=== PATIENT | female | born 1990 | race Caucasian/White ===

== ENCOUNTER 2019-02-20 21:01 | Emergency (ER) | payer OTHER ==
[2019-02-20 21:11] VITALS: TEMP 98.8; BMI 26.5
--- NOTE | 2019-02-20 21:44 | PDOC ---
History of Present Illness - General Chief Complaint: Wound Stated Complaint: LEG PROBLEM Time Seen by Provider: 02/20/19 21:44 - History of Present Illness Initial Comments: 02/20/19 23:28 injected gentamycin after liposuction Past History - Past Medical History Allergies/Adverse Reactions: Allergies Allergy/AdvReac Type Severity Reaction Status Date / Time shellfish derived Allergy Unknown Verified 02/20/19 21:04 Home Medications: Ambulatory Orders Cephalexin Monohydrate [Keflex -] 500 mg PO BID 5 Days #10 capsule 02/20/19 Asthma: No Cancer: No Cardiac Disorders: No COPD: No Diabetes: No HTN: No Hypercholesterolemia: No Seizures: No Thyroid Disease: No - Reproductive History (#): 2 Para: 0 Therapeutic (s) & number: Yes - Immunization History Immunization Up to Date: Yes - Suicide/Smoking/Psychosocial Hx Smoking Status: No Smoking History: Current some day smoker Have you smoked in the past 12 months: Yes Number of Cigarettes Smoked Daily: 0 Information on smoking cessation initiated: Yes Hx Alcohol Use: Yes Drug/Substance Use Hx: No Substance Use Type: None Hx Substance Use Treatment: No *Physical Exam - Vital Signs Last Vital Signs Temp Pulse Resp BP Pulse Ox 98.8 F 115 H 20 135/69 100 02/20/19 21:04 02/20/19 21:04 02/20/19 21:04 02/20/19 21:04 02/20/19 21:04 ED Treatment Course - LABORATORY CBC & Chemistry Diagram: 02/20/19 22:25 02/20/19 22:25 *DC/Admit/Observation/Transfer Diagnosis at time of Disposition: Cellulitis - Discharge Dispostion Disposition: HOME Condition at time of disposition: Stable Decision to Admit order: No - Prescriptions Prescriptions: Cephalexin Monohydrate [Keflex -] 500 mg PO BID 5 Days #10 capsule - Referrals Referrals: Angie Bryant MD [Primary Care Provider] - - Patient Instructions Printed Discharge Instructions: DI for Wound Infection Additional Instructions: You were seen in the ED for complaints of redness and pain in the legs at site of injection. You were evaluated with labwork and your results were unremarkable You were prescribed antibiotics. Please take as indicated. Return to the ED immediately if you experience any fevers, leg swelling, warmth or redness or drainage from the wound site. - Post Discharge Activity
[2019-02-20 22:39] LABS: BASO % 0.6 % (0-2.0); EOS % 3.8 % (0-4.5); HEMATOCRIT 36.2 % (32.4-45.2); HEMOGLOBIN 11.9 GM/dL (10.7-15.3); LYMPH % 37.3 % (8-40); MCH 28.3 pg (25.7-33.7); MCHC 32.9 g/dl (32.0-36.0); MEAN PLT VOLUME 8.5 fl (7.5-11.1); NEUT % 48.3 % (42.8-82.8); PLATELET COUNT 297 K/MM3 (134-434); RBC 4.21 M/mm3 (3.60-5.2); WHITE BLOOD COUNT 5.6 K/mm3 (4.0-10.0)
[2019-02-20 22:51] LABS: INR 1.03 (0.83-1.09); PROTHROMBIN TIME (PATIENT) 12.2 SEC (9.7-13.0)
[2019-02-20 23:06] LABS: ALBUMIN 3.9 g/dl (3.4-5.0); BILIRUBIN,TOTAL 0.3 mg/dL (0.2-1); BLOOD UREA NITROGEN 10.2 mg/dL (7-18); CALCIUM 9.3 mg/dL (8.5-10.1); CREATININE 0.6 mg/dL (0.55-1.3); TOT PROT 7.1 g/dl (6.4-8.2)
[2019-02-20] MEDS ORDERED: CEPHALEXIN MONOHYDRATE 500 MG CAPSULE (UD) PO ONE (23:08)
[2019-02-20] MEDS ORDERED: CEPHALEXIN MONOHYDRATE 500 MG CAPSULE (UD) ONE (23:11)
[2019-02-20 23:34] VITALS: BP 130/73; PULSE 97
== END 2019-02-20 23:30 | disposition home or self-care (01) ==
LOC: JER 21:01
DX: T81.49XA Infection following a procedure, other surgical site, initial encounter (principal); L03.116 Cellulitis of left lower limb; L03.115 Cellulitis of right lower limb
CPT/HCPCS: 36415; 80053; 83605; 85025; 85610; 85730; 87040; 99283-25

== ENCOUNTER 2019-02-22 21:47 | Emergency (ER) | payer OTHER ==
--- NOTE | 2019-02-22 21:56 | PDOC ---
Rapid Medical Evaluation Chief Complaint: Rash Time Seen by Provider: 02/22/19 21:53 Medical Evaluation: Allergies Allergy/AdvReac Type Severity Reaction Status Date / Time shellfish derived Allergy Unknown Verified 02/20/19 21:04 02/22/19 21:54 Pt presents for worsening rash to both of her legs. She was seen in the ED on . States it is now blistering Exam: deferred to on-coming provider Orders: Nothing Pt to proceed to the ER for further evaluation Discharge Disposition - Diagnosis Cellulitis - Referrals - Patient Instructions - Post Discharge Activity
[2019-02-22 21:59] VITALS: BP 128/74; PULSE 89; TEMP 98.7; BMI 27.3
--- NOTE | 2019-02-22 22:07 | PDOC ---
History of Present Illness - General Chief Complaint: Redness To Affected Area Stated Complaint: RASH Time Seen by Provider: 02/22/19 21:53 History Source: Patient - History of Present Illness Initial Comments: 02/22/19 22:27 28 year old female s/p lipo suction in [place] 01/31/19 s/p procedure patient returned to the [facility]. patient was advised by surgeon to take IM dose of gentamicin post procedure. ( last dose 02/11). patient self injected 3 doses of gentamicin now with redness to b/.l thigh injection site for the last 5 days. denies fever/ chills, streaking, pain or redness at the lipo suction site. patient seen in this ED 2 days ago and was started on cephalexin. patient reports that today she received a call from the ED and advised to return for a wound check. 0 Past History - Past Medical History Allergies/Adverse Reactions: Allergies Allergy/AdvReac Type Severity Reaction Status Date / Time shellfish derived Allergy Unknown Verified 02/20/19 21:04 Home Medications: Ambulatory Orders Cephalexin Monohydrate [Keflex -] 250 mg PO Q6H #28 capsule 02/22/19 Sulfamethoxazole/Trimethoprim [Bactrim Ds -] 1 tab PO BID #14 tablet 02/22/19 Asthma: No Cancer: No Cardiac Disorders: No COPD: No Diabetes: No HTN: No Hypercholesterolemia: No Seizures: No Thyroid Disease: No - Reproductive History (#): 2 Para: 0 Therapeutic (s) & number: Yes - Immunization History Immunization Up to Date: Yes - Suicide/Smoking/Psychosocial Hx Smoking Status: No Smoking History: Never smoked Have you smoked in the past 12 months: Yes Number of Cigarettes Smoked Daily: 0 Hx Alcohol Use: Yes Drug/Substance Use Hx: No Substance Use Type: None Hx Substance Use Treatment: No Review of Systems - Review of Systems Able to Perform ROS?: Yes Is the patient limited Wolof proficient: No *Physical Exam - Vital Signs Last Vital Signs Temp Pulse Resp BP Pulse Ox 98.7 F 89 18 128/74 99 02/22/19 21:53 02/22/19 21:53 02/22/19 21:53 02/22/19 21:53 02/22/19 21:53 - Physical Exam General Appearance: Yes: Appropriately Dressed Extremity: positive: Erythema (and scabbing to b/l thigh. not warm to touch. tenderness noted. no fluctuant mass) Integumentary: positive: Dry, Warm Neurologic: positive: Fully Oriented, Alert, Normal Mood/Affect Progress Note - Progress Note Progress Note: A: cellulitis wound check P: skin marked. bactrim to be added patient to return in 2 days for a wound check *DC/Admit/Observation/Transfer Diagnosis at time of Disposition: Encounter for evaluation of wound Cellulitis Qualifiers: Site of cellulitis: extremity Site of cellulitis of extremity: lower extremity Laterality: unspecified laterality Qualified Code(s): L03.119 - Cellulitis of unspecified part of limb - Discharge Dispostion Disposition: HOME - Prescriptions Prescriptions: Cephalexin Monohydrate [Keflex -] 250 mg PO Q6H #28 capsule Sulfamethoxazole/Trimethoprim [Bactrim Ds -] 1 tab PO BID #14 tablet - Referrals Referrals: Radu Bryant MD [Primary Care Provider] - - Patient Instructions Printed Discharge Instructions: DI for Wound Infection Additional Instructions: continue cephalexin 4 times daily take bactrim twice a day return to the ER in 2 days for a wound check or follow up with your PCP in 2 days for a wound check return to the ER immediately if redness is worsening, streaking, fever/ chills or worsening symptoms. - Post Discharge Activity
--- NOTE | 2019-02-22 23:29 | PDOC ---
*Physical Exam - Vital Signs Last Vital Signs Temp Pulse Resp BP Pulse Ox 98.7 F 89 18 128/74 99 02/22/19 21:53 02/22/19 21:53 02/22/19 21:53 02/22/19 21:53 02/22/19 21:53 - Physical Exam Comments: 02/22/19 23:26 Multiple areas of erythema on the anterior aspects of the bilateral thighs, not warm to touch. Underlying induration. No expressible purulence. Medical Decision Making - Medical Decision Making 02/22/19 23:27] on keflex for cellulitis s/p injected gentamycin for cosmetic purposes at the recommendation of a [facility] cosmetic center. afebrile not tachy normotensive will iker borders with skin marker add bactrim for MRSA coverage return to ED in 2d for wound check. *DC/Admit/Observation/Transfer Diagnosis at time of Disposition: Encounter for evaluation of wound Cellulitis Qualifiers: Site of cellulitis: extremity Site of cellulitis of extremity: lower extremity Laterality: unspecified laterality Qualified Code(s): L03.119 - Cellulitis of unspecified part of limb - Discharge Dispostion Disposition: HOME - Prescriptions Prescriptions: Cephalexin Monohydrate [Keflex -] 250 mg PO Q6H #28 capsule Sulfamethoxazole/Trimethoprim [Bactrim Ds -] 1 tab PO BID #14 tablet - Referrals Referrals: Radu Bryant MD [Primary Care Provider] - - Patient Instructions Printed Discharge Instructions: DI for Wound Infection Additional Instructions: continue cephalexin 4 times daily take bactrim twice a day return to the ER in 2 days for a wound check or follow up with your PCP in 2 days for a wound check return to the ER immediately if redness is worsening, streaking, fever/ chills or worsening symptoms. - Post Discharge Activity
== END 2019-02-22 22:45 | disposition home or self-care (01) ==
LOC: JER 21:47
DX: L03.116 Cellulitis of left lower limb (principal); L03.115 Cellulitis of right lower limb; Z98.890 Other specified postprocedural states
CPT/HCPCS: 99281-25

== ENCOUNTER 2019-05-01 15:36 | Inpatient (IN) | payer OTHER ==
[~2019-05-01 15:36] MED LIST: CLINDAMYCIN 300 MG PREMIX IVPB 300 MG/50 ML BAG IVPB SCH
--- NOTE | 2019-05-01 16:11 | PDOC ---
History of Present Illness - General Chief Complaint: Wound Stated Complaint: R LEG INFECTION Time Seen by Provider: 05/01/19 16:08 - History of Present Illness Initial Comments: 05/01/19 16:38 28 y/o F s/p liposuction in [facility] 3 months ago presents with a wound on her right lower thigh. She was recently treated for cellulitis in the same area in January. Pt. reports she started picking at the scab that had formed over the area and noticed clear drainage 3 weeks ago. Drainage eventually became more purulent over time and she saw her PCP earlier this week. He put her on keflex which she was been taking for the last 5 days. wound continues to drain yellowish fluid with surrounding erythema. She denies any streaking, other wounds in other areas, pain, fevers, chills, cough, shortness of breath, abdominal pain, frequency, urgency. Past History - Past Medical History Allergies/Adverse Reactions: Allergies Allergy/AdvReac Type Severity Reaction Status Date / Time shellfish derived Allergy Unknown Verified 05/01/19 16:01 Home Medications: Ambulatory Orders Chlorhexidine Gluconate [Hibiclens For Decolonization -] 1 applic TP DAILY #1 bottle 05/05/19 Lactobacillus Acidophilus [Bacid -] 1 tab PO DAILY #30 tab 05/05/19 Mupirocin Ointment [Bactroban Ointment (For Decolonization) -] 1 applic NS DAILY #1 tube 05/05/19 Sulfamethoxazole/Trimethoprim [Bactrim Ds -] 1 tab PO BID #10 tablet 05/05/19 Asthma: No Cancer: No Cardiac Disorders: No COPD: No Diabetes: No HTN: No Hypercholesterolemia: No Seizures: No Thyroid Disease: No - Reproductive History (#): 2 Para: 0 Therapeutic (s) & number: Yes - Immunization History Immunization Up to Date: Yes - Psycho Social/Smoking Cessation Hx Smoking Status: No Smoking History: Current some day smoker Have you smoked in the past 12 months: Yes Number of Cigarettes Smoked Daily: 0 Information on smoking cessation initiated: No Hx Alcohol Use: Yes Drug/Substance Use Hx: No Substance Use Type: None Hx Substance Use Treatment: No Review of Systems - Review of Systems Constitutional: No: Chills, Fever HEENTM: No: Eye Pain, Blurred Vision Respiratory: No: Cough, Shortness of Breath Cardiac (ROS): No: Chest Pain, Lightheadedness ABD/GI: No: Nausea, Vomiting : No: Burning, Dysuria Musculoskeletal: No: Back Pain, Muscle Pain Integumentary: No: Bruising, Dryness Neurological: No: Headache, Numbness Hematologic/Lymphatic: No: Blood Clots, Easy Bleeding *Physical Exam - Vital Signs Last Vital Signs Temp Pulse Resp BP Pulse Ox 98.2 F 96 H 18 123/82 99 05/01/19 15:58 05/01/19 15:58 05/01/19 15:58 05/01/19 15:58 05/01/19 15:58 - Physical Exam Comments: 05/01/19 16:49 PE: GENERAL: Awake, alert, and fully oriented, in no acute distress HEAD: No signs of trauma, normocephalic, atraumatic EYES: sclera anicteric, conjunctiva clear ENT: Auricles normal inspection, hearing grossly normal, nares patent, oropharynx clear without exudates. Moist mucosa NECK: Normal ROM, supple, JVD, or masses LUNGS: No distress, speaks full sentences, clear to auscultation bilaterally HEART: Regular rate and rhythm, normal S1 and S2, no murmurs, rubs or gallops, peripheral pulses normal and equal bilaterally. ABDOMEN: Soft, nontender, normoactive bowel sounds. No masses EXTREMITIES : circular wound on distal right thigh about 0.5cm in diameter, draining yellowish purulent fluid. surrounding erythema and mild induration. NEUROLOGICAL: Cranial nerves II through XII grossly intact. Normal speech, normal gait, no focal sensorimotor deficits SKIN: Warm, Dry, normal turgor, no rashes or lesions noted ED Treatment Course - LABORATORY CBC & Chemistry Diagram: 05/05/19 08:35 05/05/19 08:35 Medical Decision Making - Medical Decision Making 05/01/19 16:53 28 y/o F s/p liposuction in [facility] 3 months ago presents with a wound on her right lower thigh cellulitis vs abscess cbc, cmp, ekg, blood cultures, wound culture, right femur x-ray, soft tissue ultrasound. 05/01/19 18:50 Pt given Clindamycin 600mg IV after cultures drawn. Soft tissue ultrasound FINDINGS:There is a small area of non-vascular subcutaneous edematous tissue measuring 1.4 x 0.4 x 1.4 cm. IMPRESSION: Subcutaneous edematous tissue -cbc, cmp unremarkable -EKG: normal sinus rhythm, normal EKG 05/01/19 18:52 -Pt admitted for inpatient treatment. Discharge - Discharge Information Problems reviewed: Yes Clinical Impression/Diagnosis: Cellulitis Qualifiers: Site of cellulitis: extremity Site of cellulitis of extremity: lower extremity Laterality: unspecified laterality Qualified Code(s): L03.119 - Cellulitis of unspecified part of limb Condition: Improved Disposition: HOME - Follow up/Referral - Patient Discharge Instructions - Post Discharge Activity
--- NOTE | 2019-05-01 16:51 | PDOC ---
Attending Attestation - Resident Resident Name: Arline Sagastume - ED Attending Attestation I have performed the following: I have examined & evaluated the patient, The case was reviewed & discussed with the resident, I agree w/resident's findings & plan, Exceptions are as noted - HPI HPI: 05/01/19 16:51 28 yo female p/w leg infection for which she had been taking keflex for but her wound became more painful and dev drainage and she presents for admission for failure of her outpt antibiotics 05/01/19 17:02 - Physicial Exam PE: 05/01/19 17:37 petite 28 yo female p/w thigh abscess head ncat neck supple lungs cta b/l cvs [id number] abdomen soft,nontender extremities right thigh w draining 0.5 abscess with surrounding area of induration skin warm and dry neuro axox3,ambulatory 05/01/19 17:39 - Medical Decision Making 05/01/19 17:04 pt had liposuction in [place] in January and had been given syringe to inject her antibiotics after her surgery, she had dev an abscess about a month ago but it healed after antibiotics. Then about a week ago she scratched her scab off and it became infected. 05/01/19 17:35 05/01/19 17:37 plan admission to med/surg for IV antibiotics 05/01/19 19:01 negative preg test cbc and chemistries are unremarkable
[2019-05-01] MEDS ORDERED: CLINDAMYCIN 600MG PREMIX IVPB 600 MG/50 ML BAG IVPB ONE ×2 (16:59→17:05)
[2019-05-01 17:10] LABS: BASO % 0.3 % (0-2.0); EOS % 0.9 % (0-4.5); HEMATOCRIT 41.4 % (32.4-45.2); HEMOGLOBIN 14.4 GM/dL (10.7-15.3); LYMPH % 30.7 % (8-40); MCH 29.2 pg (25.7-33.7); MCHC 34.8 g/dl (32.0-36.0); MEAN PLT VOLUME 8.9 fl (7.5-11.1); MONO % 8.3 % (3.8-10.2); NEUT % 59.8 % (42.8-82.8); PLATELET COUNT 263 K/MM3 (134-434); RBC 4.93 M/mm3 (3.60-5.2); RDW 13.9 % (11.6-15.6); WHITE BLOOD COUNT 8.1 K/mm3 (4.0-10.0)
[2019-05-01 18:12] LABS: ALBUMIN 4.2 g/dl (3.4-5.0); BILIRUBIN,TOTAL 0.5 mg/dL (0.2-1); CALCIUM 9.1 mg/dL (8.5-10.1); CREATININE 0.7 mg/dL (0.55-1.3); POTASSIUM 4.9 mmol/L (3.5-5.1)
--- NOTE | 2019-05-01 19:44 | HP ---
Admitting History and Physical - Primary Care Physician PCP: Dr. Morales - Admission Chief Complaint: right leg infection History of Present Illness: 28 year old female with history ( s/p liposuction in [facility] 3 months), denies any other medical, surgical history arrives to Emergency room for right lower thigh infection, wound noted with yellow pus, erythema and slight tenderness. As per patient she was treated for cellulitis to b/l thigh ( same area) in january at [facility], resolved and formed a scab over right thigh, patient was picking at it and eventually noted with drainage 3 weeks ago, went to PCP early this week, and started on Keflex, took over 5 days however failed outpatient treatment, now in ER with continues yellow drainage with erythema to the site. Patient denies CP/SOB, fever, chills, numbness, tingling over extremity, denies N/V/C/D. Patient denies urinary symptoms. History Source: Patient Limitations to Obtaining History: No Limitations - Past Medical History ...LMP: 10/15/11 - Past Surgical History Additional Past Surgical History: s/p liposuction - Smoking History Smoking history: Current some day smoker Have you smoked in the past 12 months: Yes Aproximately how many cigarettes per day: 0 - Alcohol/Substance Use Hx Alcohol Use: Yes History of Substance Use: reports: None - Social History ADL: Independent History of Recent Travel: Yes Home Medications - Allergies Allergies/Adverse Reactions: Allergies Allergy/AdvReac Type Severity Reaction Status Date / Time shellfish derived Allergy Unknown Verified 05/01/19 16:01 - Home Medications Home Medications: Ambulatory Orders Cephalexin Monohydrate [Keflex -] 250 mg PO Q6H #28 capsule 02/22/19 Sulfamethoxazole/Trimethoprim [Bactrim Ds -] 1 tab PO BID #14 tablet 02/22/19 Family Medical History Family History: Denies Review of Systems - Review of Systems Constitutional: reports: No Symptoms Eyes: reports: No Symptoms HENT: reports: No Symptoms Neck: reports: No Symptoms Cardiovascular: reports: No Symptoms Respiratory: reports: No Symptoms Gastrointestinal: reports: No Symptoms Genitourinary: reports: No Symptoms Musculoskeletal: reports: No Symptoms Integumentary: reports: Erythema, Wound Neurological: reports: No Symptoms Endocrine: reports: No Symptoms Hematology/Lymphatic: reports: No Symptoms Psychiatric: reports: No Symptoms Physical Examination Vital Signs: Vital Signs Temperature 98.2 F 05/01/19 15:58 Pulse Rate 84 05/01/19 17:10 Respiratory Rate 16 05/01/19 17:10 Blood Pressure 107/69 05/01/19 17:10 O2 Sat by Pulse Oximetry (%) 100 05/01/19 17:42 Constitutional: Yes: No Distress, Calm Eyes: Yes: Conjunctiva Clear, EOM Intact HENT: Yes: Atraumatic, Normocephalic Neck: Yes: Supple, Trachea Midline Cardiovascular: Yes: Regular Rate and Rhythm Respiratory: Yes: Regular, CTA Bilaterally Gastrointestinal: Yes: Normal Bowel Sounds, Soft Musculoskeletal: Yes: WNL Extremities: Yes: Erythema, Other (noted with wound on distal right thigh, erythema, yellow draining purulent discharge, mild tenderness) Edema: No Peripheral Pulses WNL: Yes Neurological: Yes: Alert, Oriented Labs: CBC, BMP 05/01/19 16:50 05/01/19 16:50 Imaging - Results X-ray: Report Reviewed (right femur xr: no acute finding) Ultrasound: Report Reviewed (US soft tissues US: There is a small area of non- vascular subcutaneous edematous tissue measuring 1.4 x 0.4 x 1.4 cm. IMPRESSION : Subcutaneous edematous tissue) Problem List - Problems (1) Cellulitis Code(s): L03.90 - CELLULITIS, UNSPECIFIED Qualifiers: Site of cellulitis: extremity Site of cellulitis of extremity: lower extremity Laterality: unspecified laterality Qualified Code(s): L03.119 - Cellulitis of unspecified part of limb (2) Encounter for evaluation of wound Code(s): [id number] - Assessment/Plan 28 year old female with history ( s/p liposuction in [facility] 3 months), denies any other medical, surgical history arrives to Emergency room for right lower thigh infection, wound noted with yellow pus, erythema and slight tenderness. #Right thigh cellulitis #Right upper leg wound - Soft tissue ultrasoundFINDINGS:There is a small area of non-vascular subcutaneous edematous tissue measuring 1.4 x 0.4 x 1.4 cm. IMPRESSION: Subcutaneous edematous tissue -cbc, cmp unremarkable -EKG: normal sinus rhythm - In ED given: clindamycin x1 IV - follow up wound, blood cx - will continue with clindamycin, change antibiotics based on cultures - follow up ID - pain management - local wound care DVT ppx: ambulation, TEDs Diet: Regular Visit type - Emergency Visit Emergency Visit: Yes Care time: The patient presented to the Emergency Department on the above date and was hospitalized for further evaluation of their emergent condition. - New Patient This patient is new to me today: Yes Date on this admission: 05/01/19 - Critical Care Critical Care patient: No
[2019-05-01] MEDS ORDERED: ACETAMINOPHEN 325 MG TABLET (FP) PO PRN (19:53)
[2019-05-01 22:29] VITALS: BMI 25.3
[2019-05-02] MEDS: CLINDAMYCIN 300 MG PREMIX IVPB 300 MG/50 ML BAG IVPB SCH ×2 (02:27→10:52)
[2019-05-02] MEDS ORDERED: PT OWN MED DRAWER 7, Y5N ONE ×2 (05:55→10:49)
[2019-05-02 07:35] LABS: HEMATOCRIT 37.6 % (32.4-45.2); HEMOGLOBIN 12.6 GM/dL (10.7-15.3); MCH 27.9 pg (25.7-33.7); MCHC 33.4 g/dl (32.0-36.0); MEAN CELL VOLUME 83.5 fl (80-96); MEAN PLT VOLUME 8.8 fl (7.5-11.1); PLATELET COUNT 256 K/MM3 (134-434); RBC 4.51 M/mm3 (3.60-5.2); RDW 13.8 % (11.6-15.6); WHITE BLOOD COUNT 6.7 K/mm3 (4.0-10.0)
[2019-05-02 08:10] LABS: BLOOD UREA NITROGEN 9.4 mg/dL (7-18); CALCIUM 8.7 mg/dL (8.5-10.1); CREATININE 0.6 mg/dL (0.55-1.3); POTASSIUM 3.7 mmol/L (3.5-5.1)
--- NOTE | 2019-05-02 10:03 | EKG ---
Test Reason : Blood Pressure : / mmHG Vent. Rate : 086 BPM Atrial Rate : 086 BPM P-R Int : 164 ms QRS Dur : 070 ms QT Int : 356 ms P-R-T Axes : 063 038 032 degrees QTc Int : 426 ms NORMAL SINUS RHYTHM NORMAL ECG WHEN COMPARED WITH ECG OF 24-MAY-2016 03:50, NO SIGNIFICANT CHANGE WAS FOUND Confirmed by LAMBERT HALL MD ([id number]) on 05/02/2019 10:03:00 AM Referred By: Confirmed By:LAMBERT HALL MD
--- NOTE | 2019-05-02 10:23 | PN ---
Teaching Attending Note Name of Resident: Roland Carrera ATTENDING PHYSICIAN STATEMENT I saw and evaluated the patient. I reviewed the resident's note and discussed the case with the resident. I agree with the resident's findings and plan as documented. SUBJECTIVE: Patient has no complaints. She says her right thigh is less red but she still notes thick yellow drainage from wound. OBJECTIVE: Vital Signs Period Temp Pulse Resp BP Sys/Mejia Pulse Ox Last 24 Hr 97.9 F-98.7 F 66-96 16-20 101-129/57-82 99-100 HEART: S1S2, RRR LUNGS: Clear ABDOMEN: Soft, non-tender, non-distended, normal BS EXTREMITIES: No edema. Open wound of distal right thigh with purulent drainage and decreased surrounding erythema Laboratory Results - last 24 hr 05/01/19 05/01/19 05/01/19 16:50 16:50 16:50 WBC 8.1 RBC 4.93 Hgb 14.4 Hct 41.4 MCV 84.0 MCH 29.2 MCHC 34.8 RDW 13.9 D Plt Count 263 MPV 8.9 Absolute Neuts (auto) 4.8 Neutrophils % 59.8 D Lymphocytes % 30.7 Monocytes % 8.3 Eosinophils % 0.9 Basophils % 0.3 Nucleated RBC % 0 Sodium 137 Potassium 4.9 Chloride 105 Carbon Dioxide 27 Anion Gap 6 L BUN 9.0 Creatinine 0.7 Est GFR (CKD-EPI)AfAm 138.59 Est GFR (CKD-EPI)NonAf 119.58 Random Glucose 79 Calcium 9.1 Total Bilirubin 0.5 AST 40 H ALT 22 Alkaline Phosphatase 85 Total Protein 8.0 Albumin 4.2 Serum , Qual Negative 05/02/19 05/02/19 06:50 06:50 WBC 6.7 RBC 4.51 Hgb 12.6 Hct 37.6 MCV 83.5 MCH 27.9 MCHC 33.4 RDW 13.8 Plt Count 256 MPV 8.8 Absolute Neuts (auto) Neutrophils % Lymphocytes % Monocytes % Eosinophils % Basophils % Nucleated RBC % Sodium 137 Potassium 3.7 Chloride 105 Carbon Dioxide 26 Anion Gap 6 L BUN 9.4 Creatinine 0.6 Est GFR (CKD-EPI)AfAm 145.80 Est GFR (CKD-EPI)NonAf 125.80 Random Glucose 90 Calcium 8.7 Total Bilirubin AST ALT Alkaline Phosphatase Total Protein Albumin Serum , Qual Current Medications Generic Name Dose Route Start Last Admin Trade Name Freq PRN Reason Stop Dose Admin Acetaminophen 650 mg 05/01/19 19:53 05/02/19 03:06 Tylenol - PO 650 mg Q6H PRN Administration PAIN LEVEL 1-5 Clindamycin Phosphate 300 mg in 50 mls @ 104 mls/hr 05/02/19 03:00 05/02/19 02:27 Cleocin 300 Mg Premix Ivpb IVPB 104 mls/hr Q6H-IV JOSE DE JESUS Administration Lactobacillus Acidophilus 1 tab 05/02/19 10:00 Bacid - PO DAILY JOSE DE JESUS ASSESSMENT AND PLAN: This is a 28 year old woman with a history of liposuction in [facility] 3 months ago who presented to the ED with redness of and yellow fluid draining from a right thigh wound. 1. Right thigh abscess and cellulitis - Continue Clindamycin - await ID recommendations - Blood cultures negative after 24 hours - Wound culture pending
[2019-05-02] MEDS: LACTOBACILLUS ACIDOPHILUS 1 TABLET PO SCH (10:52)
--- NOTE | 2019-05-02 11:05 | CON.ID ---
Consult Consult Specialty:: infectious diseases Referred by:: hospitalist service Reason for Consultation:: infection of the liposuction site of the thighs with draiange of pus - History of Present Illness Chief Complaint: wound infection in both thighs with pus History of Present Illness: 28 year old female s/p liposuction in [facility] 3 months, denies any other medical, surgical history admitted to the hospital because of abscess coming out of the liposution site says her left side has healed ,the rt continues to drain , wound noted with yellow pus, erythema and slight tenderness. As per patient she was treated for cellulitis to b/l thigh ( same area) in january at [facility], resolved and formed a scab over right thigh, patient was picking at it and eventually noted with drainage 3 weeks ago, went to PCP early this week, and started on Keflex, took over 5 days however failed outpatient treatment, now with continues yellow drainage with erythema to the site. Patient denies CP/SOB, fever, chills, numbness, tingling over extremity, denies N/V/C/D. Patient denies urinary symptoms. - History Source History Provided By: Patient Limitations to Obtaining History: No Limitations - Past Medical History ...LMP: 10/15/11 ...: No - Alcohol/Substance Use Hx Alcohol Use: Yes History of Substance Use: reports: None - Smoking History Smoking history: Current some day smoker Have you smoked in the past 12 months: Yes Aproximately how many cigarettes per day: 0 - Social History ADL: Independent History of Recent Travel: Yes Home Medications - Allergies Allergies/Adverse Reactions: Allergies Allergy/AdvReac Type Severity Reaction Status Date / Time shellfish derived Allergy Unknown Verified 05/01/19 16:01 - Home Medications Home Medications: Ambulatory Orders Cephalexin [Keflex] 500 mg PO Q6H 05/01/19 Review of Systems - Review of Systems Constitutional: reports: No Symptoms Eyes: reports: No Symptoms HENT: reports: No Symptoms Neck: reports: No Symptoms Cardiovascular: reports: No Symptoms Respiratory: reports: No Symptoms Gastrointestinal: reports: No Symptoms Genitourinary: reports: No Symptoms Musculoskeletal: reports: Muscle Pain, Other Integumentary: reports: Wound, Other (pus drainage from the rt thigh) Neurological: reports: No Symptoms Endocrine: reports: No Symptoms Hematology/Lymphatic: reports: No Symptoms Psychiatric: reports: No Symptoms Physical Exam Vital Signs: Vital Signs Temperature 97.9 F 05/02/19 07:45 Pulse Rate 66 05/02/19 07:45 Respiratory Rate 20 05/02/19 07:45 Blood Pressure 101/57 L 05/02/19 07:45 O2 Sat by Pulse Oximetry (%) 99 05/01/19 21:35 Constitutional: Yes: Well Nourished, No Distress, Calm Eyes: Yes: Conjunctiva Clear HENT: Yes: Atraumatic, Normocephalic Neck: Yes: Supple, Trachea Midline Cardiovascular: Yes: Regular Rate and Rhythm Respiratory: Yes: Regular, CTA Bilaterally Gastrointestinal: Yes: Normal Bowel Sounds, Soft Musculoskeletal: Yes: Other Extremities: Yes: Other (pus drainaing from the rt thigh) Wound/Incision: Yes: Open to air, Draining Neurological: Yes: Alert, Oriented Psychiatric: Yes: Alert, Oriented Labs: CBC, BMP 05/02/19 06:50 05/02/19 06:50 Imaging - Results Chest X-ray: Report Reviewed, Image Reviewed Ultrasound: Report Reviewed, Image Reviewed Assessment/Plan this patient with no medical problems coming to the hospital post lipo suction and now forming an abscess and draining happened couple of times now i am worried about patient having non tuberculous bacteria--m abscessus /m chelonae also cx have been send for bacterial infection i demetri león ordered a swab of the specimen plan will continue abx close watch await for all cx reports rest as per the team
--- NOTE | 2019-05-02 12:39 | PN ---
Progress Note (short form) - Note Progress Note: HPI: Events noted overnight. No sore throat, swelling, or pruritus noted. Pt has no complains and admits her cellulitis seems improved. No diarrhea, fevers/ chills, shortness of breath, CP, palpitations Vital Signs Temperature 98.3 F 05/02/19 14:26 Pulse Rate 87 05/02/19 14:26 Respiratory Rate 17 05/02/19 09:00 Blood Pressure 123/61 05/02/19 14:26 O2 Sat by Pulse Oximetry (%) 99 05/02/19 09:00 PE: Gen: NAD, awake, alert, oriented x3 HEENT: NC/AT, GAIL, sclera anicteric, MMM LUNG: CTA b/l no wheezes. No accessory muscle use. On RA CARD: RRR no murmurs appreciated ABD: Soft, NT/ND, normoactive BS, no guarding EXT: R lateral thigh fluctuance with receeding erythema noted Skin: SEE above, no rashes CBC, BMP 05/02/19 06:50 05/02/19 06:50 Microbiology 05/01/19 16:50 Thigh - Right Gram Stain - Final Active Medications Acetaminophen (Tylenol -) 650 mg PO Q6H PRN PRN Reason: PAIN LEVEL 1-5 Last Admin: 05/02/19 03:06 Dose: 650 mg Vancomycin HCl 1,250 mg/ (Dextrose) 250 mls @ 166.667 mls/hr IVPB Q24H JOSE DE JESUS; Protocol Last Admin: 05/02/19 13:45 Dose: 166.667 mls/hr Piperacillin Sod/Tazobactam (Sod 3.375 gm/ Dextrose) 50 mls @ 100 mls/hr IVPB Q8H-IV JOSE DE JESUS; Protocol Last Admin: 05/02/19 12:46 Dose: 100 mls/hr Lactobacillus Acidophilus (Bacid -) 1 tab PO DAILY JOSE DE JESUS Last Admin: 05/02/19 10:52 Dose: 1 tab Assessment and Plan: R Thigh Cellulitis requiring IV ABX --Continue clindamycin IVPB q6h --Awaiting culture results --Appreciated ID input --Will likely change to PO ABX once cultures resolve --Bacid continued with IV ABX --Tylenol PRN for fever/pain FEN: Fluids: Encourage PO Electrolyte abnormalities: None Nutrition: Regular diet PPX: DVT - Early ambulation GI - Not indicated Dispo: Continue Monitoring Case discussed with Dr. Jose Carrera, DO - IM PGY-3
[2019-05-02] MEDS: PIPERACILLIN/TAZOB 3.375 GM 3.375 GM in DEXTROSE 5%-WATER - 50 ML IVPB SCH ×2 (12:46→17:23)
[2019-05-02] MEDS ORDERED: DEXTROSE 5%-WATER - 50 ML IVPB ONE ×2 (13:28→17:09)
[2019-05-02] MEDS ORDERED: PIPERACILLIN/TAZOBACTAM 3.375 GM VIAL IVPB ONE ×2 (13:28→17:09)
[2019-05-02] MEDS: VANCOMYCIN HCL 1,250 MG in DEXTROSE 5%-WATER - 250 ML IVPB SCH (13:45)
[2019-05-03] MEDS ORDERED: DEXTROSE 5%-WATER - 50 ML IVPB ONE ×3 (02:24→17:33)
[2019-05-03] MEDS ORDERED: PIPERACILLIN/TAZOBACTAM 3.375 GM VIAL IVPB ONE ×3 (02:24→17:33)
[2019-05-03] MEDS: PIPERACILLIN/TAZOB 3.375 GM 3.375 GM in DEXTROSE 5%-WATER - 50 ML IVPB SCH ×3 (02:28→17:37)
[2019-05-03 08:02] LABS: HEMATOCRIT 36.8 % (32.4-45.2); HEMOGLOBIN 12.5 GM/dL (10.7-15.3); MCH 28.3 pg (25.7-33.7); MCHC 33.9 g/dl (32.0-36.0); MEAN CELL VOLUME 83.3 fl (80-96); MEAN PLT VOLUME 9.1 fl (7.5-11.1); PLATELET COUNT 246 K/MM3 (134-434); RBC 4.42 M/mm3 (3.60-5.2); RDW 13.5 % (11.6-15.6); WHITE BLOOD COUNT 6.3 K/mm3 (4.0-10.0)
[2019-05-03 08:24] LABS: BLOOD UREA NITROGEN 11.7 mg/dL (7-18); CALCIUM 8.1 mg/dL (8.5-10.1); CREATININE 0.7 mg/dL (0.55-1.3); POTASSIUM 3.8 mmol/L (3.5-5.1)
[2019-05-03] MEDS: LACTOBACILLUS ACIDOPHILUS 1 TABLET PO SCH (09:08)
--- NOTE | 2019-05-03 12:12 | PN ---
Progress Note, Physician History of Present Illness: patient still draining all cx send cx results noted - Current Medication List Current Medications: Active Medications Acetaminophen (Tylenol -) 650 mg PO Q6H PRN PRN Reason: PAIN LEVEL 1-5 Last Admin: 05/02/19 03:06 Dose: 650 mg Vancomycin HCl 1,250 mg/ (Dextrose) 250 mls @ 166.667 mls/hr IVPB Q24H JOSE DE JESUS; Protocol Last Admin: 05/02/19 13:45 Dose: 166.667 mls/hr Piperacillin Sod/Tazobactam (Sod 3.375 gm/ Dextrose) 50 mls @ 100 mls/hr IVPB Q8H-IV JOSE DE JESUS; Protocol Last Admin: 05/03/19 09:06 Dose: 100 mls/hr Lactobacillus Acidophilus (Bacid -) 1 tab PO DAILY JOSE DE JESUS Last Admin: 05/03/19 09:08 Dose: 1 tab - Objective Vital Signs: Vital Signs Temperature 98.7 F 05/03/19 09:26 Pulse Rate 85 05/03/19 09:26 Respiratory Rate 20 05/03/19 09:26 Blood Pressure 136/52 L 05/03/19 09:26 O2 Sat by Pulse Oximetry (%) 98 05/02/19 21:00 Constitutional: Yes: No Distress, Calm Cardiovascular: Yes: S1, S2 Respiratory: Yes: Regular, CTA Bilaterally Gastrointestinal: Yes: Normal Bowel Sounds, Soft Musculoskeletal: Yes: WNL Extremities: Yes: WNL Wound/Incision: Yes: Clean/Dry, Draining Neurological: Yes: Alert, Oriented Psychiatric: Yes: Alert, Oriented Labs: CBC, BMP 05/03/19 06:30 05/03/19 06:30 Assessment/Plan abscess of the leg wound infection plan will continue abx close watch await for all cx reports rest as per the team
[2019-05-03] MEDS ORDERED: PT OWN MED DRAWER 7, Y5N ONE (12:25)
[2019-05-03] MEDS: VANCOMYCIN HCL 1,250 MG in DEXTROSE 5%-WATER - 250 ML IVPB SCH (12:30)
--- NOTE | 2019-05-03 14:09 | PN ---
Progress Note (short form) - Note Progress Note: HPI: Pt without complaints today. Asking about duration of antibiotics. No fevers/chills, no pain in thigh. Pt's IV infiltrated during the day without any concern for thrombophlebitis. Heatpack and elevation already applied to pt's arm. Vital Signs Temperature 98.7 F 05/03/19 09:26 Pulse Rate 85 05/03/19 09:26 Respiratory Rate 20 05/03/19 09:26 Blood Pressure 136/52 L 05/03/19 09:26 O2 Sat by Pulse Oximetry (%) 98 05/02/19 21:00 PE: Gen: NAD, awake, alert, oriented x3 HEENT: NC/AT, AGIL, sclera anicteric, MMM LUNG: CTA b/l no wheezes. No accessory muscle use. On RA CARD: RRR no murmurs appreciated ABD: Soft, NT/ND, normoactive BS, no guarding EXT: R lateral thigh fluctuance without erythema today. R arm edema with warmth ; no streaking erythema noted at this time Skin: SEE above, no rashes CBC, BMP 05/03/19 06:30 05/03/19 06:30 Microbiology 05/01/19 16:50 Thigh - Right Gram Stain - Final 05/01/19 16:50 Thigh - Right Wound Culture - Preliminary Presumptive Mrsa (Pbp2a Pos) 05/01/19 16:50 Blood - Peripheral Venous Blood Culture - Preliminary NO GROWTH OBTAINED AFTER 24 HOURS, INCUBATION TO CONTINUE FOR 4 DAYS. 05/01/19 16:50 Blood - Peripheral Venous Blood Culture - Preliminary NO GROWTH OBTAINED AFTER 24 HOURS, INCUBATION TO CONTINUE FOR 4 DAYS. Active Medications Acetaminophen (Tylenol -) 650 mg PO Q6H PRN PRN Reason: PAIN LEVEL 1-5 Last Admin: 05/02/19 03:06 Dose: 650 mg Vancomycin HCl 1,250 mg/ (Dextrose) 250 mls @ 166.667 mls/hr IVPB Q24H JOSE DE JESUS; Protocol Last Admin: 05/03/19 12:30 Dose: 166.667 mls/hr Piperacillin Sod/Tazobactam (Sod 3.375 gm/ Dextrose) 50 mls @ 100 mls/hr IVPB Q8H-IV JOSE DE JESUS; Protocol Last Admin: 05/03/19 09:06 Dose: 100 mls/hr Lactobacillus Acidophilus (Bacid -) 1 tab PO DAILY JOSE DE JESUS Last Admin: 05/03/19 09:08 Dose: 1 tab Assessment and Plan: R Thigh Cellulitis requiring IV ABX --Preliminiary presumptive MRSA in wound culture noted --No growth in blood cultures --Continue Vancomycin qdaily; vanco trough on 4th dose to be done --Appreciate ID recommendations --Looking close to duration of 10-14 days of ABX; however will defer to ID gestalt --Bacid to continue with ABX --Tylenol on board for fever/pain FEN: Fluids: Encourage PO Electrolyte abnormalities: None Nutrition: Regular diet PPX: DVT - Early ambulation GI - Not indicated Dispo: Continue Monitoring Case discussed with Dr. Jose Carrera, DO - IM PGY-3
--- NOTE | 2019-05-03 15:38 | PN ---
Teaching Attending Note Name of Resident: Roland Carrera ATTENDING PHYSICIAN STATEMENT I saw and evaluated the patient. I reviewed the resident's note and discussed the case with the resident. I agree with the resident's findings and plan as documented. SUBJECTIVE: Patient has noted less drainage from the right thigh wound. She complains of swelling of her left arm at the site of an IV that was removed earlier today. OBJECTIVE: Vital Signs Period Temp Pulse Resp BP Sys/Mejia Pulse Ox Last 24 Hr 98 F-98.7 F 72-85 20-20 110-146/52-67 98 HEART: S1S2, RRR LUNGS: Clear ABDOMEN: Soft, non-tender, non-distended, normal BS EXTREMITIES: Left forearm swollen with no erythema. Open wound of distal right thigh with small amount of purulent drainage and no surrounding erythema Laboratory Results - last 24 hr 05/03/19 05/03/19 06:30 06:30 WBC 6.3 RBC 4.42 Hgb 12.5 Hct 36.8 MCV 83.3 MCH 28.3 MCHC 33.9 RDW 13.5 Plt Count 246 MPV 9.1 Sodium 139 Potassium 3.8 Chloride 108 H Carbon Dioxide 25 Anion Gap 6 L BUN 11.7 Creatinine 0.7 Est GFR (CKD-EPI)AfAm 138.59 Est GFR (CKD-EPI)NonAf 119.58 Random Glucose 88 Calcium 8.1 L Current Medications Generic Name Dose Route Start Last Admin Trade Name Freq PRN Reason Stop Dose Admin Acetaminophen 650 mg 05/01/19 19:53 05/02/19 03:06 Tylenol - PO 650 mg Q6H PRN Administration PAIN LEVEL 1-5 Vancomycin HCl 1,250 mg/ 250 mls @ 166.667 mls/hr 05/02/19 12:00 05/03/19 12: 30 Dextrose IVPB 166.667 mls/hr Q24H JOSE DE JESUS Administration Protocol Piperacillin Sod/Tazobactam 50 mls @ 100 mls/hr 05/02/19 11:30 05/03/19 09:06 Sod 3.375 gm/ Dextrose IVPB 100 mls/hr Q8H-IV JOSE DE JESUS Administration Protocol Lactobacillus Acidophilus 1 tab 05/02/19 10:00 05/03/19 09:08 Bacid - PO 1 tab DAILY JOSE DE JESUS Administration ASSESSMENT AND PLAN: This is a 28 year old woman with a history of liposuction in [facility] 3 months ago who presented to the ED with redness of and yellow fluid draining from a right thigh wound. 1. Right thigh abscess and cellulitis - Clindamycin changed to Zosyn, vancomycin - Blood cultures negative after 24 hours - Wound culture growing presumptive MRSA - follow up sensitivities 2. Left arm phlebitis secondary to IV infiltration - Warm compresses - Elevate arm - Close monitoring
[2019-05-04] MEDS ORDERED: PIPERACILLIN/TAZOBACTAM 3.375 GM VIAL IVPB ONE ×2 (01:32→10:17)
[2019-05-04] MEDS ORDERED: DEXTROSE 5%-WATER - 50 ML IVPB ONE ×2 (01:33→10:18)
[2019-05-04] MEDS: PIPERACILLIN/TAZOB 3.375 GM 3.375 GM in DEXTROSE 5%-WATER - 50 ML IVPB SCH ×2 (01:54→10:26)
[2019-05-04 08:56] LABS: BLOOD UREA NITROGEN 8.9 mg/dL (7-18); CALCIUM 8.4 mg/dL (8.5-10.1); CREATININE 0.6 mg/dL (0.55-1.3); POTASSIUM 3.7 mmol/L (3.5-5.1)
[2019-05-04] MEDS: LACTOBACILLUS ACIDOPHILUS 1 TABLET PO SCH (10:26)
--- NOTE | 2019-05-04 10:30 | PN ---
Progress Note, Physician History of Present Illness: patient still draining all cx send cx results noted - Current Medication List Current Medications: Active Medications Acetaminophen (Tylenol -) 650 mg PO Q6H PRN PRN Reason: PAIN LEVEL 1-5 Last Admin: 05/02/19 03:06 Dose: 650 mg Vancomycin HCl 1,250 mg/ (Dextrose) 250 mls @ 166.667 mls/hr IVPB Q24H JOSE DE JESUS; Protocol Last Admin: 05/03/19 12:30 Dose: 166.667 mls/hr Lactobacillus Acidophilus (Bacid -) 1 tab PO DAILY JOSE DE JESUS Last Admin: 05/04/19 10:26 Dose: 1 tab - Objective Vital Signs: Vital Signs Temperature 98.2 F 05/04/19 08:50 Pulse Rate 72 05/04/19 08:50 Respiratory Rate 20 05/04/19 08:50 Blood Pressure 126/65 05/04/19 08:50 O2 Sat by Pulse Oximetry (%) 98 05/03/19 20:43 Constitutional: Yes: No Distress, Calm Cardiovascular: Yes: S1, S2 Respiratory: Yes: Regular, CTA Bilaterally Gastrointestinal: Yes: Normal Bowel Sounds, Soft Musculoskeletal: Yes: WNL Extremities: Yes: Other Neurological: Yes: Alert, Oriented Psychiatric: Yes: Alert, Oriented Labs: CBC, BMP 05/03/19 06:30 05/04/19 06:00 Assessment/Plan abscess of the leg wound infection plan will continue abx close watch await for all cx reports rest as per the team will stop zosyn check vanco trough
[2019-05-04] MEDS: VANCOMYCIN HCL 1,250 MG in DEXTROSE 5%-WATER - 250 ML IVPB SCH (12:35)
--- NOTE | 2019-05-04 14:18 | PN ---
Teaching Attending Note Name of Resident: Roland Carrera ATTENDING PHYSICIAN STATEMENT I saw and evaluated the patient. I reviewed the resident's note and discussed the case with the resident. I agree with the resident's findings and plan as documented. SUBJECTIVE: Patient has no complaints. She reports persistent drainage from right thigh wound. OBJECTIVE: Vital Signs Period Temp Pulse Resp BP Sys/Mejia Pulse Ox Last 24 Hr 98.0 F-98.2 F 72-90 20-20 115-126/56-65 98-98 HEART: S1S2, RRR LUNGS: Clear ABDOMEN: Soft, non-tender, non-distended, normal BS EXTREMITIES: Left forearm less swollen swollen. Open wound of distal right thigh with small amount of purulent drainage and no surrounding erythema Laboratory Results - last 24 hr 05/04/19 05/04/19 06:00 10:45 Sodium 137 Potassium 3.7 Chloride 106 Carbon Dioxide 25 Anion Gap 6 L BUN 8.9 Creatinine 0.6 Est GFR (CKD-EPI)AfAm 145.80 Est GFR (CKD-EPI)NonAf 125.80 Random Glucose 86 Calcium 8.4 L Vancomycin Pre-Dose 1.0 L Current Medications Generic Name Dose Route Start Last Admin Trade Name Freq PRN Reason Stop Dose Admin Acetaminophen 650 mg 05/01/19 19:53 05/02/19 03:06 Tylenol - PO 650 mg Q6H PRN Administration PAIN LEVEL 1-5 Vancomycin HCl 1,250 mg/ 250 mls @ 166.667 mls/hr 05/02/19 12:00 05/04/19 12: 35 Dextrose IVPB 166.667 mls/hr Q24H JOSE DE JESUS Administration Protocol Lactobacillus Acidophilus 1 tab 05/02/19 10:00 05/04/19 10:26 Bacid - PO 1 tab DAILY JOSE DE JESUS Administration ASSESSMENT AND PLAN: This is a 28 year old woman with a history of liposuction in [facility] 3 months ago who presented to the ED with redness of and yellow fluid draining from a right thigh wound. 1. MRSA abscess and cellulitis of right leg - Zosyn discontinued - Continue vancomycin - Blood cultures negative after 48 hours 2. Left arm phlebitis secondary to IV infiltration - Improving
--- NOTE | 2019-05-04 18:06 | PN ---
Progress Note (short form) - Note Progress Note: HPI: No complaints. No events PE: Gen: NAD, awake, alert, oriented x3 HEENT: NC/AT, GAIL, sclera anicteric, MMM LUNG: CTA b/l no wheezes. No accessory muscle use. On RA CARD: RRR no murmurs appreciated ABD: Soft, NT/ND, normoactive BS, no guarding EXT: R lateral thigh fluctuance without erythema today. R arm improved from yesterday Skin: SEE above, no rashes CBC, BMP 05/03/19 06:30 05/04/19 06:00 Microbiology 05/01/19 16:50 Thigh - Right Gram Stain - Final 05/01/19 16:50 Thigh - Right Wound Culture - Preliminary Presumptive Mrsa (Pbp2a Pos) 05/01/19 16:50 Blood - Peripheral Venous Blood Culture - Preliminary NO GROWTH OBTAINED AFTER 24 HOURS, INCUBATION TO CONTINUE FOR 4 DAYS. 05/01/19 16:50 Blood - Peripheral Venous Blood Culture - Preliminary NO GROWTH OBTAINED AFTER 24 HOURS, INCUBATION TO CONTINUE FOR 4 DAYS. Active Medications Acetaminophen (Tylenol -) 650 mg PO Q6H PRN PRN Reason: PAIN LEVEL 1-5 Last Admin: 05/02/19 03:06 Dose: 650 mg Vancomycin HCl 1,250 mg/ (Dextrose) 250 mls @ 166.667 mls/hr IVPB Q24H JOSE DE JESUS; Protocol Last Admin: 05/03/19 12:30 Dose: 166.667 mls/hr Piperacillin Sod/Tazobactam (Sod 3.375 gm/ Dextrose) 50 mls @ 100 mls/hr IVPB Q8H-IV JOSE DE JESUS; Protocol Last Admin: 05/03/19 09:06 Dose: 100 mls/hr Lactobacillus Acidophilus (Bacid -) 1 tab PO DAILY JOSE DE JESUS Last Admin: 05/03/19 09:08 Dose: 1 tab Assessment and Plan: R Thigh Cellulitis requiring IV ABX --Preliminiary presumptive MRSA in wound culture noted --No growth in blood cultures --Continue Vancomycin qdaily; vanco trough on 4th dose to be done --Zosyn discontinued --Appreciate ID recommendations --Looking close to duration of 10-14 days of ABX; however will defer to ID gestalt --Bacid to continue with ABX --Tylenol on board for fever/pain FEN: Fluids: Encourage PO Electrolyte abnormalities: None Nutrition: Regular diet PPX: DVT - Early ambulation GI - Not indicated Dispo: Continue Monitoring Case discussed with Dr. Jose Carrera, DO - IM PGY-3
[2019-05-05 08:55] LABS: HEMATOCRIT 40.3 % (32.4-45.2); HEMOGLOBIN 13.4 GM/dL (10.7-15.3); MCHC 33.3 g/dl (32.0-36.0); MEAN CELL VOLUME 84.1 fl (80-96); MEAN PLT VOLUME 8.5 fl (7.5-11.1); PLATELET COUNT 254 K/MM3 (134-434); RDW 13.7 % (11.6-15.6)
--- NOTE | 2019-05-05 09:11 | PN ---
Teaching Attending Note Name of Resident: Roland Carrera ATTENDING PHYSICIAN STATEMENT I saw and evaluated the patient. I reviewed the resident's note and discussed the case with the resident. I agree with the resident's findings and plan as documented. SUBJECTIVE: No new complaints OBJECTIVE: Vital Signs Temperature 98.2 F 05/05/19 05:49 Pulse Rate 75 05/05/19 05:49 Respiratory Rate 20 05/05/19 05:49 Blood Pressure 115/65 05/05/19 05:49 O2 Sat by Pulse Oximetry (%) 98 05/04/19 20:38 General: Young woman, comfortable, not in distress HEENT; mucous membranes moist, no anemia, no jaundice, PERRLA, no nystagmus Neck: No JVD, supple, no bruit, thyroid palpably normal, normal carotid pulsations. Chest: Nontender, clear to auscultation bilaterally CVS: S1-S2 regular/irregular no murmur/gallop/rub Abdomen: Nondistended, soft, bowel sounds present. Extremities: Healing abscess with no discharge right thigh no induration or inflammation, no edema., No cough tenderness, pulses present [employer]: AO X3 , no gross motor sensory deficit CBC, BMP 05/05/19 08:35 Active Medications Acetaminophen (Tylenol -) 650 mg PO Q6H PRN PRN Reason: PAIN LEVEL 1-5 Last Admin: 05/02/19 03:06 Dose: 650 mg Vancomycin HCl 1,250 mg/ (Dextrose) 250 mls @ 166.667 mls/hr IVPB Q24H JOSE DE JESUS; Protocol Last Admin: 05/04/19 12:35 Dose: 166.667 mls/hr Lactobacillus Acidophilus (Bacid -) 1 tab PO DAILY JOSE DE JESUS Last Admin: 05/04/19 10:26 Dose: 1 tab Assessment and physical examination: 28 years old female status post liposuction in [place], present with left thigh abscess formation, cultured to MRSA, patient is on vancomycin day fifth, afebrile, stable, discharge from the abscess decreasing , considering soft tissue infection, no clinical sign of intravascular infection, antibiotic can be switched to p.o. as per sensitivity either clindamycin or Bactrim as per ID choice and patient can be discharged home. Impression: Right thigh cellulitis status post liposuction: Continue current management. Follow-up can be discharged on p.o. antibiotic. Considering recurrent infection need MRSA decolonization with chlorhexidine bath at home and the mupricone nasal of the patient.
[2019-05-05 09:22] LABS: BLOOD UREA NITROGEN 8.8 mg/dL (7-18); CALCIUM 8.6 mg/dL (8.5-10.1); CREATININE 0.7 mg/dL (0.55-1.3); POTASSIUM 3.7 mmol/L (3.5-5.1)
[2019-05-05] MEDS: LACTOBACILLUS ACIDOPHILUS 1 TABLET PO SCH (09:47)
--- NOTE | 2019-05-05 12:16 | PN ---
Progress Note, Physician History of Present Illness: stable no new issues - Current Medication List Current Medications: Active Medications Acetaminophen (Tylenol -) 650 mg PO Q6H PRN PRN Reason: PAIN LEVEL 1-5 Last Admin: 05/02/19 03:06 Dose: 650 mg Vancomycin HCl 1,250 mg/ (Dextrose) 250 mls @ 166.667 mls/hr IVPB Q12H JOSE DE JESUS; Protocol Lactobacillus Acidophilus (Bacid -) 1 tab PO DAILY JOSE DE JESUS Last Admin: 05/05/19 09:47 Dose: 1 tab - Objective Vital Signs: Vital Signs Temperature 98.2 F 05/05/19 05:49 Pulse Rate 75 05/05/19 05:49 Respiratory Rate 17 05/05/19 09:00 Blood Pressure 115/65 05/05/19 05:49 O2 Sat by Pulse Oximetry (%) 98 05/05/19 09:00 Constitutional: Yes: No Distress, Calm Cardiovascular: Yes: S1, S2 Respiratory: Yes: Regular, CTA Bilaterally Gastrointestinal: Yes: Normal Bowel Sounds, Soft Musculoskeletal: Yes: WNL Extremities: Yes: WNL Neurological: Yes: Alert, Oriented Labs: CBC, BMP 05/05/19 08:35 05/05/19 08:35 Assessment/Plan abscess of the leg wound infection plan will continue abx close watch await for all cx reports rest as per the team
[2019-05-05] MEDS: VANCOMYCIN HCL 1,250 MG in DEXTROSE 5%-WATER - 250 ML IVPB SCH (12:41)
[2019-05-05] MEDS ORDERED: MUPIROCIN 2% TOPICAL OINTMENT FOR DECOLONIZATION NS SCH (12:45)
[2019-05-05] MEDS ORDERED: CHLORHEXIDINE GLUCONATE 4% CLEANSER FOR DECOLONIZATION TP SCH (12:45)
[2019-05-05] MEDS ORDERED: VANCOMYCIN HCL 1,250 MG in DEXTROSE 5%-WATER - 250 ML IVPB SCH (13:00)
[2019-05-05 14:08] VITALS: BP 101/59; PULSE 86; TEMP 99.3
== END 2019-05-05 18:51 | disposition home or self-care (01) | DRG 383 ==
LOC: JER 15:36 → JERBED 19:18 → J6S 22:09
PROVIDERS: ADMIT Internal Medicine; ATTEND Internal Medicine
DX: L03.115 Cellulitis of right lower limb (principal); L02.415 Cutaneous abscess of right lower limb; F17.210 Nicotine dependence, cigarettes, uncomplicated; B95.62 Methicillin resistant Staphylococcus aureus infection as the cause of diseases classified elsewhere; I80.8 Phlebitis and thrombophlebitis of other sites; T80.1XXA Vascular complications following infusion, transfusion and therapeutic injection, initial encounter; Y84.8 Other medical procedures as the cause of abnormal reaction of the patient, or of later complication, without mention of misadventure at the time of the procedure
CPT/HCPCS: 36415; 73552-TC-RT-FY; 76882-TC-RT-FY; 80048; 80053; 84703; 85025; 85027; 87040; 87070; 87116; 87186; 87205; 87206; 93005; 93010; 99285-25; G0480